=== PATIENT | male | born 1970 | race Caucasian/White ===

== ENCOUNTER 2024-03-19 10:38 | Inpatient (IN) | payer BC ==
[2024-03-19] MEDS ORDERED: Acetaminophen 500 MG TAB ONE (10:51)
[2024-03-19 11:17] LABS: #Basophils 0.09 10x3/uL (0.0-0.2); %Basophils 0.5 % (0.0-1.0); %Eosinophils 1.4 % (0.0-10.0); %Lymphocytes 5.9 % (21.0-51.0); %Monocytes 5.1 % (0.0-10.0); %Neutrophils 86.5 % (42.0-75.0); Hemoglobin 14.9 g/dL (14.0-18.0); Mean Corpuscular HGB CONC 35.5 g/dL (32.0-36.0); Mean Corpuscular Hemoglobin 30.1 pg (27.0-31.0); Mean Corpuscular Volume 84.8 fL (78.0-98.0); Mean Platelet Volume 9.8 fL (7.4-10.4); Platelet Count 342 10x3/uL (130-400); RBC Distribution Width 13.2 % (11.5-14.5); Red Blood Cell (RBC) Count 4.95 mill/uL (4.70-6.10)
[2024-03-19 11:28] LABS: ALT (SGPT) 46 U/L (8-55); AST (SGOT) 28 U/L (5-34); Albumin 4.2 g/dL (3.5-5.0); Alkaline Phosphatase 93 U/L (40-110); Anion Gap 16 mmol/L (10-20); BUN (Urea Nitrogen) 13 mg/dL (8.4-25.7); Bilirubin, Total 0.9 mg/dL (0.2-1.2); Calc. Creatinine Clearance 0 mL/min (70-130); Calcium 9.2 mg/dL (7.8-10.44); Carbon Dioxide 24 mmol/L (22-29); Chloride 99 mmol/L (98-107); Estimated GFR 74; Globulin 3.9 g/dL (2.4-3.5); Glucose 254 mg/dL (70-105); Potassium 3.2 mmol/L (3.5-5.1); Protein, Total 8.1 g/dL (6.0-8.3); Sodium 136 mmol/L (136-145)
[2024-03-19 11:32] LABS: Troponin I Less than 0.010 ng/mL (< 0.028)
[2024-03-19 12:14] LABS: Influenza A by NAA Not Detected (NotDetected); Influenza B by NAA Not Detected (NotDetected); SARS-CoV-2 NAA Rapid Test Not Detected (NotDetected)
[2024-03-19] MEDS ORDERED: Piperacillin/Tazobactam 3.375 GM VIAL ONE (13:13)
[2024-03-19] MEDS ORDERED: Sodium Chloride 0.9% 100 ML ONE (13:13)
[2024-03-19 13:24] LABS: Bacteria/HPF None Seen HPF (None Seen); Bilirubin Negative (Negative); Blood, Urine Negative (Negative); CAUTI Indications for Culture Fever or rigors; Clarity Clear (Clear); Glucose, Urine (Dipstick) 500 mg/dL (Negative); Ketone, Urine Trace mg/dL (Negative); Leukocyte Negative Leu/uL (Negative); Nitrite Negative (Negative); Protein, Urine (Dipstick) Negative (Neg-Trace); RBC/HPF 0-3 HPF (0-3); Specific Gravity, Urine 1.018 (1.002-1.036); Squamous Epithelial None Seen HPF (0-3); Urobilinogen Normal mg/dL (Less than 2); WBC/HPF 0-3 HPF (0-3)
[2024-03-19 13:25] LABS: Urine Culture Reflex No No
[2024-03-19] MEDS ORDERED: Vancomycin (BATCH) 2 GM/500 ML BAG ONE (13:51)
[2024-03-19] MEDS ORDERED: Ondansetron ODT 4 MG TAB PO PRN (14:19)
[2024-03-19 14:35] LABS: Lactic Acid 2.6 mmol/L (0.5-2.2)
[2024-03-19] MEDS ORDERED: Dextrose 5% in Water 1,000 ML IV PRN (14:49)
[2024-03-19] MEDS ORDERED: Glucagon 1 MG/ML KIT IM PRN (14:49)
[2024-03-19] MEDS ORDERED: Dextrose 50% Abboject 50 ML SYRINGE SLOW IVP PRN (14:49)
[2024-03-19] MEDS ORDERED: Insulin Lispro 100 UNIT/ML 10 ML VIAL SC PRN ×2 (14:49)
[2024-03-19] MEDS ORDERED: SUMAtriptan Succinate 25 MG TAB PO PRN (15:02)
[2024-03-19 15:13] VITALS: BMI 34.2
[2024-03-19] MEDS: Cefepime 2 GM in Sodium Chloride 0.9% 100 ML IVPB SCH (18:24)
[2024-03-19] MEDS: Potassium Chloride 20 MEQ TAB PO SCH (18:25)
[2024-03-19] MEDS: Acetaminophen 325 MG TAB PO PRN (19:48)
[2024-03-19] MEDS: metFORMIN 500 MG TAB PO SCH (19:49)
[2024-03-20] MEDS: Vancomycin (BATCH) 1.5 GM in Premix 1 BAG IVPB SCH (01:14)
[2024-03-20 07:35] LABS: #Basophils 0.04 10x3/uL (0.0-0.2); #Eosinphils Less than 0.03 10x3/uL (0.0-0.7); %Basophils 0.4 % (0.0-1.0); %Lymphocytes 9.4 % (21.0-51.0); %Monocytes 5.4 % (0.0-10.0); %Neutrophils 84.5 % (42.0-75.0); Hemoglobin 12.2 g/dL (14.0-18.0); Mean Corpuscular HGB CONC 33.9 g/dL (32.0-36.0); Mean Corpuscular Hemoglobin 29.9 pg (27.0-31.0); Mean Corpuscular Volume 88.2 fL (78.0-98.0); Mean Platelet Volume 9.6 fL (7.4-10.4); Platelet Count 256 10x3/uL (130-400); RBC Distribution Width 13.5 % (11.5-14.5); Red Blood Cell (RBC) Count 4.08 mill/uL (4.70-6.10)
[2024-03-20 07:51] LABS: Vancomycin, Random 14.9 ug/mL (See Comment)
[2024-03-20 07:54] LABS: ALT (SGPT) 31 U/L (8-55); AST (SGOT) 21 U/L (5-34); Albumin 3.3 g/dL (3.5-5.0); Alkaline Phosphatase 61 U/L (40-110); Anion Gap 14 mmol/L (10-20); BUN (Urea Nitrogen) 11 mg/dL (8.4-25.7); Calc. Creatinine Clearance 137 mL/min (70-130); Calcium 8.1 mg/dL (7.8-10.44); Carbon Dioxide 21 mmol/L (22-29); Chloride 106 mmol/L (98-107); Estimated GFR 86; Globulin 3.3 g/dL (2.4-3.5); Glucose 152 mg/dL (70-105); Potassium 3.2 mmol/L (3.5-5.1); Protein, Total 6.6 g/dL (6.0-8.3); Sodium 138 mmol/L (136-145)
[2024-03-20 08:47] LABS: Magnesium 1.5 mg/dL (1.6-2.6)
[2024-03-20] MEDS: Atorvastatin Calcium 40 MG TAB PO SCH (09:45)
[2024-03-20] MEDS: Losartan 25 MG TAB PO SCH (09:46)
[2024-03-20] MEDS: Hydrochlorothiazide 25 MG TAB PO SCH (09:47)
[2024-03-20] MEDS: Aspirin Chewable 81 MG TAB PO SCH (09:47)
[2024-03-20] MEDS: Amlodipine 10 MG TAB PO SCH (09:47)
[2024-03-20] MEDS: Potassium Chloride 20 MEQ TAB PO SCH (09:47)
[2024-03-20] MEDS: Enoxaparin 40 MG (0.4 mL) SYRINGE SC SCH (09:48)
[2024-03-20] MEDS: Bacitracin 1 PK TOP SCH (13:09)
[2024-03-20] MEDS: Gabapentin 300 MG CAP PO SCH (16:24)
[2024-03-20] MEDS: Magnesium Oxide 400 MG TAB PO SCH (20:48)
[2024-03-20] MEDS: Vancomycin (BATCH) 1.75 GM in Premix 1 BAG IVPB SCH (22:29)
[2024-03-21 06:23] LABS: Vancomycin, Random 21.8 ug/mL (See Comment)
[2024-03-21 07:03] LABS: #Basophils 0.04 10x3/uL (0.0-0.2); %Basophils 0.5 % (0.0-1.0); %Eosinophils 2.5 % (0.0-10.0); %Lymphocytes 16.8 % (21.0-51.0); %Monocytes 10.6 % (0.0-10.0); %Neutrophils 69.3 % (42.0-75.0); Hematocrit 36.5 % (42.0-52.0); Hemoglobin 12.7 g/dL (14.0-18.0); Mean Corpuscular HGB CONC 34.8 g/dL (32.0-36.0); Mean Corpuscular Hemoglobin 29.5 pg (27.0-31.0); Mean Corpuscular Volume 84.9 fL (78.0-98.0); Mean Platelet Volume 9.7 fL (7.4-10.4); Platelet Count 250 10x3/uL (130-400); RBC Distribution Width 13.5 % (11.5-14.5)
[2024-03-21 07:25] LABS: ALT (SGPT) 27 U/L (8-55); AST (SGOT) 20 U/L (5-34); Albumin 3.2 g/dL (3.5-5.0); Alkaline Phosphatase 67 U/L (40-110); Anion Gap 11 mmol/L (10-20); BUN (Urea Nitrogen) 11 mg/dL (8.4-25.7); Calc. Creatinine Clearance 160 mL/min (70-130); Calcium 8.7 mg/dL (7.8-10.44); Carbon Dioxide 25 mmol/L (22-29); Chloride 106 mmol/L (98-107); Estimated GFR 102; Globulin 3.7 g/dL (2.4-3.5); Glucose 148 mg/dL (70-105); Potassium 3.4 mmol/L (3.5-5.1); Protein, Total 6.9 g/dL (6.0-8.3); Sodium 139 mmol/L (136-145)
[2024-03-21 17:09] VITALS: BP 117/78; TEMP 98.2
== END 2024-03-21 19:31 | disposition home or self-care (01) | DRG 872 ==
LOC: ERS 10:38 → ERHOLD 14:35 → T4-B 17:26
PROVIDERS: ADMIT Family Medicine; ATTEND Family Medicine
DX: A41.9 Sepsis, unspecified organism (principal); M87.9 Osteonecrosis, unspecified; M10.9 Gout, unspecified; I10 Essential (primary) hypertension; G43.909 Migraine, unspecified, not intractable, without status migrainosus; E83.42 Hypomagnesemia; E87.6 Hypokalemia; E11.65 Type 2 diabetes mellitus with hyperglycemia; E78.5 Hyperlipidemia, unspecified; L97.529 Non-pressure chronic ulcer of other part of left foot with unspecified severity; Z79.82 Long term (current) use of aspirin; Z79.84 Long term (current) use of oral hypoglycemic drugs; Z79.85 Long-term (current) use of injectable non-insulin antidiabetic drugs; Z79.899 Other long term (current) drug therapy; Z89.412 Acquired absence of left great toe; E11.42 Type 2 diabetes mellitus with diabetic polyneuropathy
CPT/HCPCS: 36415; 36416; 71045; 80053; 80202; 81001; 82565; 83605; 83735; 84484; 85025; 86141; 87040; 93005; 96361; 96365; 96375; 97139; J0692; J1650; J1815; J2543; J3370